=== PATIENT | male | born 1960 | race Native Hawaiian/Other Pacific Islander ===

== ENCOUNTER 2017-10-13 17:19 | Emergency (ER) | payer BC ==
[~2017-10-13] VITALS: Ht 180.3 cm; Wt 93.4 kg
[2017-10-13 17:38] LABS: PLATELET COUNT 258 K/uL (142-355)
[2017-10-13 17:47] LABS: POTASSIUM 3.7 mmol/L (3.6-5.2)
== END 2017-10-13 18:50 | disposition home or self-care (01) ==
LOC: ED 17:19
DX: R07.89 Other chest pain (principal)
CPT/HCPCS: 80053; 81000; 84484; 85027; 93005; 99284